=== PATIENT | female | born 1935 | race Caucasian/White ===

== ENCOUNTER 2021-05-29 13:40 | Emergency (ER) | payer MEDICARE, BC ==
[2021-05-29] MEDS ORDERED: traMADol 50 MG Tab PO ONE (16:10)
== END 2021-05-29 17:34 | disposition home or self-care (01) ==
LOC: MW.ED 13:40
DX: S93.602A Unspecified sprain of left foot, initial encounter (principal); M19.90 Unspecified osteoarthritis, unspecified site; I10 Essential (primary) hypertension; Z79.899 Other long term (current) drug therapy
CPT/HCPCS: 73630; 73700; 99284; A9270

== ENCOUNTER 2023-04-29 15:48 | Emergency (ER) | payer MEDICARE, BC ==
[2023-04-29 16:30] LABS: BASOPHILS ABSOLUTE AUTO 0.02 K/uL (0.00-0.20); BASOPHILS PERCENT AUTO 0.2 % (0.0-1.0); EOSINOPHILS ABSOLUTE AUTO 0.12 K/uL (0.00-0.45); EOSINOPHILS PERCENT AUTO 1.2 % (0.0-6.0); HEMATOCRIT 39.6 % (37.0-47.0); HEMOGLOBIN 13.9 g/dL (12.0-16.0); IMMATURE GRAN ABSOLUTE AUTO 0.03 K/uL (0.00-0.05); IMMATURE GRAN PERCENT AUTO 0.3 % (0.0-0.4); LYMPHOCYTES ABSOLUTE AUTO 3.29 K/uL (1.00-4.80); MEAN CORPUSCULAR HEMOGLOBIN 32.6 pg (28.0-32.0); MEAN CORPUSCULAR HGB CONC 35.1 g/dL (32.0-36.0); MEAN CORPUSCULAR VOLUME 92.7 fL (83.0-99.0); MEAN PLATELET VOLUME 10.5 fL (9.4-12.3); MONOCYTES PERCENT AUTO 8.3 % (0.0-8.0); NEUTROPHILS ABSOLUTE AUTO 5.42 K/uL (1.80-7.70); PLATELET COUNT,PLT 162 K/uL (150-400); RED BLOOD CELL COUNT 4.27 M/uL (4.10-5.30); WHITE BLOOD CELL COUNT,WBC 9.68 K/uL (3.9-11.3)
[2023-04-29 16:51] LABS: CALCIUM 9.8 mg/dL (8.5-10.1); CARBON DIOXIDE,CO2 28.1 mmol/L (21.0-32.0); CREATININE 1.2 mg/dL (0.6-1.0); EST CRCL DRUG DOSING (CG) 27.84 mL/min; POTASSIUM,K 3.8 mmol/L (3.5-5.1); URIC ACID 7.6 mg/dL (2.6-7.2)
[2023-04-29] MEDS ORDERED: Colchicine 0.6 MG Tab PO ONE ×2 (16:53→16:55)
[2023-04-29] MEDS ORDERED: predniSONE 10 MG Tab PO ONE (16:54)
== END 2023-04-29 17:27 | disposition home or self-care (01) ==
LOC: MW.ED 15:48
DX: I10 Essential (primary) hypertension (principal); M10.9 Gout, unspecified; Z79.899 Other long term (current) drug therapy
CPT/HCPCS: 36415; 80048; 84550; 85025; 99283; A9270